=== PATIENT | male | born 1950 | race Asian ===

== ENCOUNTER 2018-12-03 08:13 | Emergency (ER) | payer OTHER ==
[~2018-12-03] VITALS: Ht 152.4 cm; Wt 94.0 kg
[~2018-12-03 08:13] MED LIST: BEN50 PO; FAMO-96 PO
[2018-12-03 08:17] VITALS: BP 110/58; PULSE 101; RESP 18; Ht 152.4 cm; Wt 94.0 kg
[2018-12-03] MEDS ORDERED: ALBUTEROL 0.083% (NEB) 2.5 MG/3 ML AMP NEB STA (09:02)
[2018-12-03] MEDS ORDERED: METHYLPREDNISOLONE 125 MG INJ IM STA (09:02)
[2018-12-03] MEDS ORDERED: IPRATROPIUM (NEB) 0.5 MG/2.5 ML AMP NEB STA (09:02)
--- NOTE | 2018-12-03 09:13 | ERD ---
ER Documentation Chief Complaint Chief Complaint DRY COUGH X 3 MONTHS HPI Patient Is a 68 years old male with past medical history of diabetes type 2 and hypertension presenting to the clinic with persistent cough X 3 months. Patient reports visiting his PCP and was given Delsym, Flonase, Claritin. Patient states that the Flonase and Claritin helped with his sinus pain, however, cough has worsened. Patient states that the cough is worse at 3 in the morning and prevents him from sleeping. Patient states that when he has his coughing bouts he has a hard time catching his breath and admits to occasional green sputum production. Patient states that he has a follow up appointment with his PCP this upcoming week. Patient states that he has never smoked in his life and denies any history of asthma or pulmonary disease. ROS All systems reviewed and are negative except as per history of present illness. Medications Home Meds Active Scripts Prednisone* (Prednisone*) 20 Mg Tab, 40 MG PO DAILY for 4 Days, TAB Prov:MASTER MUELLER PA-C 12/03/18 Dextromethorphan Hb-Promethazine Hcl* (Promethazine DM* Syrup) 473 Ml Syrup, 5 ML PO Q6 PRN for COUGH for 7 Days, ML Prov:MASTER MUELLER PA-C 12/03/18 Azithromycin* (Zithromax*) 500 Mg Tablet, 500 MG PO DAILY for 3 Days, TAB Prov:MASTER MUELLER PA-C 12/03/18 Famotidine* (Pepcid*) 20 Mg Tablet, 20 MG PO BID for 10 Days, TAB Prov:BEBE MOSES MD 04/27/15 Diphenhydramine Hcl* (Benadryl*) 50 Mg Cap, 50 MG PO Q6 PRN for ITCHING, #30 Prov:BEBE MOSES MD 04/27/15 Allergies Allergies: Coded Allergies: shellfish derived (Verified Allergy, Unknown, 04/27/15) PMhx/Soc Hypertension and diabetes type 2 Medical and Surgical Hx: pt denies Surgical Hx History of Surgery: No Anesthesia Reaction: No Hx Neurological Disorder: No Hx Respiratory Disorders: No Hx Cardiac Disorders: Yes (HTN) Hx Psychiatric Problems: No Hx Miscellaneous Medical Probl: Yes (DM; ) Hx Alcohol Use: Yes Hx Substance Use: No Hx Tobacco Use: No Smoking Status: Never smoker FmHx Patient cannot recall family history Family History: No diabetes, No coronary disease, No other Physical Exam Vitals Vital Signs Date Temp Pulse Resp B/P (MAP) Pulse Ox O2 O2 Flow FiO2 Time Delivery Rate 12/03/18 72 16 95 21 09:31 12/03/18 98.4 101 18 110/58 99 08:17 (75) Physical Exam Const: No acute distress Head: Atraumatic Eyes: Normal Conjunctiva ENT: Normal External Ears, Nose and Mouth, Throat is mildly erythematous without any lesions. Neck: Full range of motion. No meningismus. Resp: +Diffuse wheezing bilaterally. No rhonchi, rales. Cardio: Regular rate and rhythm, no murmurs Skin: No petechiae or rashes Neur: Awake and alert Psych: Normal Mood and Affect Results 24 hrs Current Medications Medications Dose Sig/Pam Start Time Status Last (Trade) Ordered Route PRN Stop Time Admin Dose Reason Admin Albuterol 5 mg ONCE STAT 12/03/18 DC 12/03/18 (Proventil NEB 09:02 09:29 0.083% (Neb)) 12/03/18 09:07 Ipratropium 1 mg ONCE STAT 12/03/18 DC 12/03/18 Dafter NEB 09:02 09:29 (Atrovent 12/03/18 09:07 0.02% (Neb)) 125 mg ONCE STAT 12/03/18 DC 12/03/18 Methylprednis IM 09:02 09:18 olone Sodium 12/03/18 09:07 Succinate (Solu-Medrol) Procedures/MDM Patient was seen and evaluated for his chronic cough which is most likely secondary to bronchitis. Throat is mildly erythematous due to excessive cough therefore no throat culture was needed. Patient was given nebulizer (albuterol and ipratropium) and Solu-Medrol in [facility] with resolution. Chest x-ray reveals Right upper lobe consolidation (pneumonia) and Left costophrenic angle pleural reaction (pleural effusion). Patient's curb 65 is 1 point and will be followed up outpatient with his primary care provider. No labs drawn for today's visit as patient is stable. Patient will be given azithromycin 500 mg p.o. x 3 days, Promethazine, prednis one. Diuretics were withheld as patient is already on antihypertensive medication. Departure Diagnosis: Primary Impression: Bronchitis Additional Impressions: Pneumonia Pneumonia type: due to unspecified organism Laterality: right Lung loca tion: upper lobe of lung Qualified Codes: J18.1 - Lobar pneumonia, unspecified organism Pleural effusion Condition: Stable Referrals: [facility] Additional Instructions: Patient advised to return to the ED immediately for new or worsening symptoms. Patient advised to follow up with primary care provider in the next 24-48 hours. Patient verbalized understanding and agrees with treatment plan and course of action. If patient has no primary care they may follow up with [facility] [address] [place] [id number] or [facility] [id number] [place] [id number] or [facility] [address] [place] [address] Comments Patient evaluated with SARAH, agree with plan MASTER Lugo PA-C December 03, 2018 09:13 BEBE SCHAEFFER DO December 05, 2018 11:52
[2018-12-03] MEDS ORDERED: D-ME473S2 PO (10:53)
[2018-12-03] MEDS ORDERED: PRED20TA PO (10:53)
[2018-12-03] MEDS ORDERED: AZIT500T3 PO (10:53)
== END 2018-12-03 11:16 | disposition home or self-care (01) ==
LOC: FTE 08:13
DX: J40 Bronchitis, not specified as acute or chronic (principal); I10 Essential (primary) hypertension; E11.9 Type 2 diabetes mellitus without complications; J18.1 Lobar pneumonia, unspecified organism; J90 Pleural effusion, not elsewhere classified
CPT/HCPCS: 71045; 94664; 96372; 99284; J2930

== ENCOUNTER 2019-03-10 12:03 | Inpatient (IN) | payer OTHER ==
[~2019-03-10] VITALS: Ht 170.2 cm; Wt 66.7 kg
[2019-03-10] VITALS (9 sets, daily range): BP systolic 90–113; BP diastolic 48–73; PULSE 72–88; RESP 11–25; Ht 170.2 cm; Wt 66.7 kg
[~2019-03-10 12:03] MED LIST changes: +ACET500C5 PO; +ATOR20TA38 PO; +AZIT500T3 PO; +D-ME473S2 PO; +DOCU50LI11 PO; +ETOMIDATE 20 MG INJ ONE; +MAGN400T8 PO; +PIOG45TA9 PO; +PRED20TA PO; +SUCCINYLCHOLINE CHLORIDE 100 MG/5 ML SYG IV ONE
[2019-03-10] MEDS ORDERED: SODIUM CHLORIDE 0.9% 1L BAG IV* STA (12:27)
[2019-03-10] MEDS ORDERED: ACETAMINOPHEN 650 MG SUPP PR ONE (12:30)
[2019-03-10] MEDS ORDERED: VANCOMYCIN 1 GM (PMX) 250 ML IVPB ONE (12:30)
[2019-03-10] MEDS ORDERED: CEFEPIME 1GM/50 ML (PMX) 50 ML IVPB ONE (12:30)
[2019-03-10] MEDS ORDERED: MIDAZOLAM (DRIP) 50 mg/50 mL 50 ML IV STA (12:33)
[2019-03-10] MEDS ORDERED: NORepinephrine 8MG/250 ML (PMX 250 ML IV STA (12:33)
[2019-03-10] MEDS ORDERED: MAGNESIUM SULFATE 2 GM/50 ML 50 ML IVPB ONE (13:30)
[2019-03-10] MEDS: POTASSIUM CHLORIDE 100 ML IVPB SCH ×3 (14:05→21:13)
[2019-03-10] MEDS ORDERED: VANCOMYCIN IV PER PHARMACY XX SCH (15:00)
[2019-03-10] MEDS ORDERED: NACL 0.9% 3 ML SYG IV SCH (15:00)
[2019-03-10] MEDS ORDERED: ONDANSETRON 4 MG INJ IV PRN (15:00)
[2019-03-10] MEDS: NS + KCL 20 MEQ 1,000 ML IV SCH (15:41)
[2019-03-10] MEDS ORDERED: GLUCOSE GEL 15 GRAM TUBE PO PRN ×2 (18:00)
[2019-03-10] MEDS ORDERED: DEXTROSE 50% 50 ML SYRINGE IV PRN ×2 (18:00)
[2019-03-10] MEDS ORDERED: GLUCOSE GEL 15 GRAM TUBE BUCCAL PRN (18:00)
[2019-03-10] MEDS ORDERED: GLUCAGON 1 MG INJ IM PRN (18:00)
[2019-03-10] MEDS: PIPER-TAZO 3.375 GM IV (PMX) 100 ML IVPB SCH (18:59)
[2019-03-10] MEDS: FAMOTIDINE 20 MG INJ IV SCH (18:59)
[2019-03-10] MEDS: INSULIN ASPART [NOVOLOG] 3 ML PEN SC SCH ×2 (19:00→20:48)
[2019-03-10] MEDS ORDERED: ZOLEDRONIC ACID 4 MG in SOD CHLORIDE 0.9% 100 ML IVPB ONE (20:30)
[2019-03-10] MEDS ORDERED: CALCITONIN SALMON INJ 200 UNITS/ML SYG SC ONE (20:30)
[2019-03-11] VITALS (47 sets, daily range): BP systolic 79–138; BP diastolic 55–95; PULSE 93–116; RESP 14–26
[2019-03-11] MEDS: PIPER-TAZO 3.375 GM IV (PMX) 100 ML IVPB SCH ×4 (00:25→18:30)
[2019-03-11] MEDS: NS + KCL 20 MEQ 1,000 ML IV SCH ×4 (00:26→22:51)
[2019-03-11] MEDS: INSULIN ASPART [NOVOLOG] 3 ML PEN SC SCH ×6 (00:59→22:28)
[2019-03-11] MEDS: ACCU-CHEK XX SCH (01:39)
[2019-03-11] MEDS: POTASSIUM CHLORIDE 100 ML IVPB SCH ×3 (02:05→05:59)
[2019-03-11] MEDS ORDERED: PANTOPRAZOLE 40 MG INJ IV SCH (06:00)
[2019-03-11] MEDS ORDERED: FUROSEMIDE 20 MG INJ IV ONE (07:30)
[2019-03-11] MEDS: FAMOTIDINE 20 MG INJ IV SCH (08:44)
[2019-03-11] MEDS: ENOXAPARIN 40 MG/0.4 ML SYG SC SCH (08:47)
[2019-03-11] MEDS ORDERED: POTASSIUM PHOSPHATE 20 MEQ in SOD CHLORIDE 0.9% 250 ML IVPB ONE (09:00)
[2019-03-11] MEDS ORDERED: CALCITONIN SALMON INJ 200 UNITS/ML SYG SC SCH (09:00)
[2019-03-11] MEDS: VANCOMYCIN 1.25 GM/NS 250 ML 250 ML IVPB SCH (14:04)
[2019-03-12] VITALS (59 sets, daily range): BP systolic 81–123; BP diastolic 54–87; PULSE 92–107; RESP 0–29
[2019-03-12] MEDS: PIPER-TAZO 3.375 GM IV (PMX) 100 ML IVPB SCH ×5 (00:03→23:47)
[2019-03-12] MEDS: INSULIN ASPART [NOVOLOG] 3 ML PEN SC SCH ×6 (01:13→21:11)
[2019-03-12] MEDS: ACCU-CHEK XX SCH (02:00)
[2019-03-12] MEDS: NS + KCL 20 MEQ 1,000 ML IV SCH (05:01)
[2019-03-12] MEDS: SOD CHLORIDE 0.45% 1,000 ML IV SCH (08:07)
[2019-03-12] MEDS: FAMOTIDINE 20 MG INJ IV SCH (08:54)
[2019-03-12] MEDS: ENOXAPARIN 40 MG/0.4 ML SYG SC SCH (09:06)
[2019-03-12] MEDS: VANCOMYCIN 1.25 GM/NS 250 ML 250 ML IVPB SCH (13:04)
[2019-03-13] VITALS (75 sets, daily range): BP systolic 85–140; BP diastolic 58–95; PULSE 86–109; RESP 0–44
[2019-03-13] MEDS: INSULIN ASPART [NOVOLOG] 3 ML PEN SC SCH ×6 (01:22→21:04)
[2019-03-13] MEDS: ACCU-CHEK XX SCH (02:00)
[2019-03-13] MEDS: SOD CHLORIDE 0.45% 1,000 ML IV SCH (04:24)
[2019-03-13] MEDS: PIPER-TAZO 3.375 GM IV (PMX) 100 ML IVPB SCH ×4 (05:37→23:37)
[2019-03-13] MEDS ORDERED: DEXTROSE 5% 1,000 ML IV SCH (07:30)
[2019-03-13] MEDS ORDERED: POTASSIUM PHOSPHATE 20 MEQ in SOD CHLORIDE 0.9% 250 ML IVPB ONE (08:30)
[2019-03-13] MEDS: ENOXAPARIN 40 MG/0.4 ML SYG SC SCH (09:00)
[2019-03-13] MEDS: FAMOTIDINE 20 MG INJ IV SCH (09:50)
[2019-03-13] MEDS: FUROSEMIDE 20 MG INJ IV SCH (14:10)
[2019-03-13] MEDS ORDERED: IOHEXOL 300MG/ML 150 ML BTL ONE (14:24)
[2019-03-13] MEDS ORDERED: SOD CHLORIDE 0.9% 100 ML ONE (14:24)
[2019-03-13] MEDS ORDERED: IPRATROPIUM (NEB) 0.5 MG/2.5 ML AMP HHN PRN (19:00)
[2019-03-14] VITALS (61 sets, daily range): BP systolic 99–143; BP diastolic 63–97; PULSE 90–109; RESP 10–34
[2019-03-14] MEDS: INSULIN ASPART [NOVOLOG] 3 ML PEN SC SCH ×6 (01:00→20:44)
[2019-03-14] MEDS: ACCU-CHEK XX SCH (01:11)
[2019-03-14] MEDS: morphine 2 MG INJ IV PRN ×3 (01:40→22:00)
[2019-03-14] MEDS: PIPER-TAZO 3.375 GM IV (PMX) 100 ML IVPB SCH ×3 (05:58→17:33)
[2019-03-14] MEDS ORDERED: POTASSIUM CHLORIDE 20 MEQ POWDER FOR ORAL SOLN GTB ONE (07:30)
[2019-03-14] MEDS: DEXTROSE 5% 1,000 ML IV SCH (07:51)
[2019-03-14] MEDS: FAMOTIDINE 20 MG INJ IV SCH (09:20)
[2019-03-14] MEDS: POTASSIUM CHLORIDE 100 ML IVPB SCH ×2 (09:20→13:27)
[2019-03-14] MEDS: FUROSEMIDE 20 MG INJ IV SCH (13:26)
[2019-03-14] MEDS ORDERED: SOD CHLORIDE 0.9% 250 ML IV* ONE (20:56)
[2019-03-14] MEDS ORDERED: BARIUM SULF 2% 450 ML BTL (BERRY SMOOTHIE) PO ONE (23:30)
[2019-03-15] VITALS (29 sets, daily range): BP systolic 99–126; BP diastolic 63–90; PULSE 92–110; RESP 14–33
[2019-03-15] MEDS: INSULIN ASPART [NOVOLOG] 3 ML PEN SC SCH ×6 (00:21→21:00)
[2019-03-15] MEDS: PIPER-TAZO 3.375 GM IV (PMX) 100 ML IVPB SCH ×4 (00:27→17:30)
[2019-03-15] MEDS: ACCU-CHEK XX SCH (02:00)
[2019-03-15] MEDS: DEXTROSE 5% 1,000 ML IV SCH ×2 (03:30→05:09)
[2019-03-15] MEDS: morphine 2 MG INJ IV PRN ×2 (04:25→22:47)
[2019-03-15] MEDS ORDERED: SOD CHLORIDE 0.9% 250 ML IV* ONE (05:52)
[2019-03-15] MEDS ORDERED: POTASSIUM CHLORIDE 50 ML ONE (06:42)
[2019-03-15] MEDS: POTASSIUM CHLORIDE 50 ML IVPB SCH ×3 (06:51→11:34)
[2019-03-15] MEDS ORDERED: MAGNESIUM SULFATE 2 GM/50 ML 50 ML ONE (07:07)
[2019-03-15] MEDS ORDERED: MAGNESIUM SULFATE 2 GM/50 ML 50 ML IVPB ONE (07:30)
[2019-03-15] MEDS: FUROSEMIDE 20 MG INJ IV SCH (08:48)
[2019-03-15] MEDS: FAMOTIDINE 20 MG TAB PO SCH (08:48)
[2019-03-15] MEDS: IPRATROPIUM (NEB) 0.5 MG/2.5 ML AMP HHN PRN (10:56)
[2019-03-15] MEDS: LEVALBUTEROL (NEB) 0.63 MG/3 ML AMP HHN PRN (10:57)
[2019-03-15] MEDS: IPRATROPIUM (NEB) 0.5 MG/2.5 ML AMP HHN SCH ×2 (14:41→19:53)
[2019-03-15] MEDS: LEVALBUTEROL (NEB) 0.63 MG/3 ML AMP HHN SCH ×2 (14:41→19:53)
[2019-03-16] VITALS (7 sets, daily range): BP systolic 106–139; BP diastolic 61–86; PULSE 71–108; RESP 17–21
[2019-03-16] MEDS: PIPER-TAZO 3.375 GM IV (PMX) 100 ML IVPB SCH ×3 (00:11→12:09)
[2019-03-16] MEDS: INSULIN ASPART [NOVOLOG] 3 ML PEN SC SCH ×6 (00:29→20:21)
[2019-03-16] MEDS: IPRATROPIUM (NEB) 0.5 MG/2.5 ML AMP HHN SCH ×4 (01:45→20:16)
[2019-03-16] MEDS: LEVALBUTEROL (NEB) 0.63 MG/3 ML AMP HHN SCH ×4 (01:45→20:17)
[2019-03-16] MEDS: ACCU-CHEK XX SCH (02:00)
[2019-03-16] MEDS: POTASSIUM CHLORIDE 100 ML IVPB SCH ×3 (07:57→14:38)
[2019-03-16] MEDS: FAMOTIDINE 20 MG TAB PO SCH (08:43)
[2019-03-16] MEDS ORDERED: MAGNESIUM SULFATE 2 GM/50 ML 50 ML IVPB ONE (09:00)
[2019-03-16] MEDS ORDERED: MEGESTROL (40 MG/ML) 10ML CUP PO ONE (09:00)
[2019-03-16] MEDS: D5W + KCL 20 MEQ 1,000 ML IV SCH (16:35)
[2019-03-16] MEDS: LEVOFLOXACIN 500 MG TAB PO SCH (17:52)
[2019-03-16] MEDS: HYDROCODONE/APAP (5/325) TAB PO PRN (21:37)
[2019-03-17] MEDS: INSULIN ASPART [NOVOLOG] 3 ML PEN SC SCH ×6 (01:00→21:43)
[2019-03-17] MEDS: LEVALBUTEROL (NEB) 0.63 MG/3 ML AMP HHN SCH ×2 (01:46→15:58)
[2019-03-17] MEDS: IPRATROPIUM (NEB) 0.5 MG/2.5 ML AMP HHN SCH ×2 (01:46→15:57)
[2019-03-17] MEDS: ACCU-CHEK XX SCH (02:09)
[2019-03-17 03:38] VITALS: BP 111/59; PULSE 77; RESP 19
[2019-03-17] MEDS: D5W + KCL 20 MEQ 1,000 ML IV SCH (03:50)
[2019-03-17] MEDS: LEVOFLOXACIN 500 MG TAB PO SCH (06:29)
[2019-03-17 07:00] VITALS: BP 132/85; PULSE 106
[2019-03-17] MEDS ORDERED: POTASSIUM CHLORIDE (SR) 20 MEQ TAB PO STA ×2 (07:27→22:15)
[2019-03-17] MEDS ORDERED: MAGNESIUM SULFATE 2 GM/50 ML 50 ML IVPB ONE (07:30)
[2019-03-17] MEDS: POTASSIUM CHLORIDE 100 ML IVPB SCH ×3 (07:36→12:22)
[2019-03-17] MEDS: DOCUSATE SODIUM 100 MG CAP PO SCH (08:09)
[2019-03-17] MEDS: FAMOTIDINE 20 MG TAB PO SCH (08:09)
[2019-03-17] MEDS: NEUTRA-PHOS 250 MG PACKET PO SCH ×2 (08:09→20:45)
[2019-03-17] MEDS: LEVALBUTEROL (NEB) 0.63 MG/3 ML AMP HHN PRN (10:08)
[2019-03-17] MEDS: IPRATROPIUM (NEB) 0.5 MG/2.5 ML AMP HHN PRN (10:08)
[2019-03-17] MEDS: SPIRONOLACTONE 50 MG TAB PO SCH (10:10)
[2019-03-17] MEDS: POTASSIUM CHLORIDE 40 MEQ in DEXTROSE 5% 1,000 ML IV SCH ×2 (10:11→18:03)
[2019-03-17 11:04] VITALS: BP 116/66; PULSE 107; RESP 18
[2019-03-17] MEDS: HYDROCODONE/APAP (5/325) TAB PO PRN ×2 (16:09→22:34)
[2019-03-17 19:33] VITALS: BP 128/75; PULSE 108; RESP 21
[2019-03-17 23:23] VITALS: BP 119/71; PULSE 101; RESP 19
[2019-03-18] MEDS: IPRATROPIUM (NEB) 0.5 MG/2.5 ML AMP HHN SCH ×3 (01:08→15:53)
[2019-03-18] MEDS: LEVALBUTEROL (NEB) 0.63 MG/3 ML AMP HHN SCH ×3 (01:09→15:53)
[2019-03-18] MEDS: INSULIN ASPART [NOVOLOG] 3 ML PEN SC SCH ×6 (01:37→20:23)
[2019-03-18] MEDS: ACCU-CHEK XX SCH (01:46)
[2019-03-18] MEDS: POTASSIUM CHLORIDE 40 MEQ in DEXTROSE 5% 1,000 ML IV SCH ×2 (03:42→11:17)
[2019-03-18 04:23] VITALS: BP 112/55; PULSE 107; RESP 21
[2019-03-18] MEDS: LEVOFLOXACIN 500 MG TAB PO SCH (05:32)
[2019-03-18 07:54] VITALS: BP 114/73; PULSE 112; RESP 20
[2019-03-18] MEDS: HYDROCODONE/APAP (5/325) TAB PO PRN ×3 (08:53→23:39)
[2019-03-18] MEDS: FAMOTIDINE 20 MG TAB PO SCH (08:53)
[2019-03-18] MEDS: SPIRONOLACTONE 50 MG TAB PO SCH (08:53)
[2019-03-18] MEDS: NEUTRA-PHOS 250 MG PACKET PO SCH ×2 (08:53→20:09)
[2019-03-18] MEDS: DOCUSATE SODIUM 100 MG CAP PO SCH (08:54)
[2019-03-18 11:12] VITALS: BP 125/75; PULSE 110; RESP 20
[2019-03-18 14:55] VITALS: BP 122/79; PULSE 115; RESP 19
[2019-03-18 20:00] VITALS: BP 127/84; PULSE 113; RESP 20
[2019-03-18 20:05] VITALS: BP 111/69; PULSE 107; RESP 18
[2019-03-19] MEDS: IPRATROPIUM (NEB) 0.5 MG/2.5 ML AMP HHN SCH ×4 (00:08→23:38)
[2019-03-19] MEDS: LEVALBUTEROL (NEB) 0.63 MG/3 ML AMP HHN SCH ×4 (00:08→23:38)
[2019-03-19 00:15] VITALS: BP 117/76; PULSE 103; RESP 17
[2019-03-19] MEDS: INSULIN ASPART [NOVOLOG] 3 ML PEN SC SCH ×6 (01:00→20:57)
[2019-03-19] MEDS: ACCU-CHEK XX SCH (01:37)
[2019-03-19] MEDS: POTASSIUM CHLORIDE 40 MEQ in DEXTROSE 5% 1,000 ML IV SCH ×3 (01:39→20:25)
[2019-03-19 04:38] VITALS: BP 117/75; PULSE 116; RESP 18
[2019-03-19] MEDS: LEVOFLOXACIN 500 MG TAB PO SCH (05:37)
[2019-03-19 07:49] VITALS: BP 121/77; PULSE 115; RESP 18
[2019-03-19] MEDS: SPIRONOLACTONE 50 MG TAB PO SCH (09:55)
[2019-03-19] MEDS: FAMOTIDINE 20 MG TAB PO SCH (09:55)
[2019-03-19] MEDS: NEUTRA-PHOS 250 MG PACKET PO SCH ×2 (09:56→20:56)
[2019-03-19] MEDS: DOCUSATE SODIUM 10 MG/ML (10ML CUP) PO SCH (09:56)
[2019-03-19] MEDS: HYDROCODONE/APAP (5/325) TAB PO PRN ×2 (10:54→17:44)
[2019-03-19 11:01] VITALS: BP 124/77; PULSE 120; RESP 18
[2019-03-19 16:00] VITALS: BP 122/64; PULSE 65; RESP 16
[2019-03-19 19:00] VITALS: BP 116/75; PULSE 116; RESP 18
[2019-03-20] MEDS: HYDROCODONE/APAP (5/325) TAB PO PRN ×3 (00:07→15:32)
[2019-03-20] MEDS: ACCU-CHEK XX SCH (02:00)
[2019-03-20 03:49] VITALS: BP 113/72; PULSE 109; RESP 18
[2019-03-20] MEDS: LEVOFLOXACIN 500 MG TAB PO SCH ×2 (06:00→09:00)
[2019-03-20] MEDS: POTASSIUM CHLORIDE 40 MEQ in DEXTROSE 5% 1,000 ML IV SCH ×2 (06:35→17:54)
[2019-03-20] MEDS: IPRATROPIUM (NEB) 0.5 MG/2.5 ML AMP HHN SCH ×2 (07:31→16:00)
[2019-03-20] MEDS: LEVALBUTEROL (NEB) 0.63 MG/3 ML AMP HHN SCH ×2 (07:31→16:00)
[2019-03-20 08:21] VITALS: BP 116/71; PULSE 117; RESP 18
[2019-03-20] MEDS: FAMOTIDINE 20 MG TAB PO SCH (09:00)
[2019-03-20] MEDS: DOCUSATE SODIUM 10 MG/ML (10ML CUP) PO SCH (09:00)
[2019-03-20] MEDS: SPIRONOLACTONE 50 MG TAB PO SCH (09:00)
[2019-03-20] MEDS: NEUTRA-PHOS 250 MG PACKET PO SCH ×2 (09:00→21:00)
[2019-03-20] MEDS: INSULIN ASPART [NOVOLOG] 3 ML PEN SC SCH ×4 (09:46→21:00)
[2019-03-20 15:22] VITALS: BP 115/58; PULSE 110; RESP 18
[2019-03-20] MEDS: morphine 2 MG INJ IV PRN (19:51)
[2019-03-20 20:30] VITALS: BP 117/76; PULSE 114; RESP 18
[2019-03-21] MEDS: LEVALBUTEROL (NEB) 0.63 MG/3 ML AMP HHN SCH ×3 (00:02→16:36)
[2019-03-21] MEDS: IPRATROPIUM (NEB) 0.5 MG/2.5 ML AMP HHN SCH ×3 (00:02→16:36)
[2019-03-21] MEDS: ACCU-CHEK XX SCH (02:00)
[2019-03-21 02:25] VITALS: BP 80/49; PULSE 120; RESP 17
[2019-03-21 02:47] VITALS: BP 89/52; PULSE 118
[2019-03-21] MEDS ORDERED: SOD CHLORIDE 0.9% 500 ML IV ONE (03:00)
[2019-03-21 03:11] VITALS: BP 100/59; PULSE 116; RESP 17
[2019-03-21] MEDS: HYDROCODONE/APAP (5/325) TAB PO PRN ×3 (03:14→16:26)
[2019-03-21] MEDS: POTASSIUM CHLORIDE 40 MEQ in DEXTROSE 5% 1,000 ML IV SCH (04:51)
[2019-03-21 04:52] VITALS: BP 108/66; PULSE 110; RESP 16
[2019-03-21] MEDS: LEVOFLOXACIN 500 MG TAB PO SCH (05:13)
[2019-03-21 07:27] VITALS: BP 109/69; PULSE 113; RESP 18
[2019-03-21] MEDS: INSULIN ASPART [NOVOLOG] 3 ML PEN SC SCH ×2 (07:50→11:40)
[2019-03-21] MEDS: NEUTRA-PHOS 250 MG PACKET PO SCH (08:38)
[2019-03-21] MEDS: FAMOTIDINE 20 MG TAB PO SCH (08:38)
[2019-03-21] MEDS: DOCUSATE SODIUM 10 MG/ML (10ML CUP) PO SCH (08:38)
[2019-03-21] MEDS: SPIRONOLACTONE 50 MG TAB PO SCH (08:38)
[2019-03-21] MEDS: morphine 2 MG INJ IV PRN (11:29)
[2019-03-21 14:41] VITALS: BP 105/66; PULSE 119; RESP 18
[2019-03-21] MEDS ORDERED: HEPARIN (100 UNITS/ML) 5 ML SYG CATHETER ONE (16:00)
== END 2019-03-21 17:33 | disposition hospice, home (50) | DRG 870 ==
LOC: E/R 12:03 → ICU 13:38 → 6WM 03-16 02:48 → MS1 03-19 19:00
PROVIDERS: ADMIT Internal Medicine; ATTEND Internal Medicine
PROC: 5A1955Z Respiratory Ventilation, Greater than 96 Consecutive Hours (ICD-10-PCS; principal; 2019-03-10)
PROC: 0BH17EZ Insertion of Endotracheal Airway into Trachea, Via Natural or Artificial Opening (ICD-10-PCS; 2019-03-10)
PROC: 30233N1 Transfusion of Nonautologous Red Blood Cells into Peripheral Vein, Percutaneous Approach (ICD-10-PCS; 2019-03-13)
PROC: 02HV33Z Insertion of Infusion Device into Superior Vena Cava, Percutaneous Approach (ICD-10-PCS; 2019-03-14)
PROC: B548ZZA Ultrasonography of Superior Vena Cava, Guidance (ICD-10-PCS; 2019-03-14)
DX: A41.9 Sepsis, unspecified organism (principal); J18.9 Pneumonia, unspecified organism; J96.01 Acute respiratory failure with hypoxia; G93.41 Metabolic encephalopathy; C34.90 Malignant neoplasm of unspecified part of unspecified bronchus or lung; C79.70 Secondary malignant neoplasm of unspecified adrenal gland; C79.51 Secondary malignant neoplasm of bone; E87.0 Hyperosmolality and hypernatremia; N17.9 Acute kidney failure, unspecified; E44.0 Moderate protein-calorie malnutrition; D63.8 Anemia in other chronic diseases classified elsewhere; D64.81 Anemia due to antineoplastic chemotherapy; E87.6 Hypokalemia; E83.52 Hypercalcemia; E83.39 Other disorders of phosphorus metabolism; E11.9 Type 2 diabetes mellitus without complications; E88.81 Metabolic syndrome and other insulin resistance; J44.9 Chronic obstructive pulmonary disease, unspecified; L89.150 Pressure ulcer of sacral region, unstageable; R62.7 Adult failure to thrive; R13.10 Dysphagia, unspecified; Z68.23 Body mass index [BMI] 23.0-23.9, adult; Z87.891 Personal history of nicotine dependence; Z79.52 Long term (current) use of systemic steroids
CPT/HCPCS: 31500; 36415; 36430; 36573; 36600; 70450; 70551; 71045; 71260; 72131; 73510; 74176; 80048; 80053; 81001; 81003; 82043; 82088; 82270; 82306; 82607; 82652; 82746; 82803; 82962; 83036; 83605; 83690; 83735; 83970; 84100; 84132; 84133; 84145; 84155; 84244; 84300; 84443; 84480; 84484; 85014; 85018; 85025; 85610; 85730; 86592; 86850; 86900; 86901; 86920; 87081; 87086; 92526; 92610; 93005; 94002; 94003; 94640; 94664; 94770; 96365; 96375; 97110; 97163; 97530; J0692; J1642; J1650; J1815; J1940; J2250; J2270; J2543; J3370; J3475; J3480; J3489; J7030; J7040; J7050; J7070; P9016; Q9967